=== PATIENT | male | born 1955 | race African-American/Black ===

== ENCOUNTER 2023-05-14 09:15 | Day surgery (SDC) | payer OTHER ==
[2023-05-11 14:08] VITALS: BMI 43.5
[2023-05-14] MEDS ORDERED: PROPOFOL 20 ML ONE (12:03)
== END 2023-05-14 13:15 | disposition home or self-care (01) ==
LOC: CSHSDC 09:15
PROVIDERS: ATTEND Internal Medicine Gastroenterology
PROC: 0DJD8ZZ Inspection of Lower Intestinal Tract, Via Natural or Artificial Opening Endoscopic (ICD-10-PCS; principal; 2023-05-14)
DX: Z12.11 Encounter for screening for malignant neoplasm of colon (principal); K64.8 Other hemorrhoids; I25.10 Atherosclerotic heart disease of native coronary artery without angina pectoris; I10 Essential (primary) hypertension; E66.9 Obesity, unspecified; Z68.41 Body mass index [BMI] 40.0-44.9, adult; Z87.891 Personal history of nicotine dependence; Z95.5 Presence of coronary angioplasty implant and graft; Z80.0 Family history of malignant neoplasm of digestive organs; Z79.82 Long term (current) use of aspirin; Z79.899 Other long term (current) drug therapy
CPT/HCPCS: J2704